=== PATIENT | female | born 1960 | race Caucasian/White ===

== ENCOUNTER 2017-02-13 07:17 | Emergency (ER) | payer OTHER ==
[~2017-02-13] VITALS: Ht 167.6 cm; Wt 100.0 kg
[2017-02-13 07:24] VITALS: BP 137/83; PULSE 81; RESP 16; TEMP 98.3; O2SAT 96
[2017-02-13 07:27] VITALS: BP 170/99; PULSE 90; RESP 16; TEMP 97.9; O2SAT 96
[2017-02-13] MEDS ORDERED: BACT800T5 PO (08:06)
--- NOTE | 2017-02-13 08:06 | PD ---
HPI Chief Complaint: Skin Problem Time Seen by Provider: 07:58 Travel History International Travel<30 days: No Contact w/Intl Traveler<30days: No Traveled to known affect area: No History of Present Illness HPI The patient is a 56-year-old female who presents emergency department for 2 infected wounds to the right upper medial thigh area for one week's duration. The patient states his symptoms started one week ago with an area of redness that she initially thought was a bug bite. However, she now notes there is some surrounding erythema in the area is painful. She also notes a satellite lesion is also tender to palpation without any drainage. The patient does have a history of similar lesions in the past with a history of MRSA. The patient denies any fever, chills, or sweats. The area is tender to palpation. She does note a history of borderline diabetes which is currently weight controlled and diet controlled. The symptoms are mild to moderate, no known alleviating or exacerbating factors. PFSH Past Medical History Medical History: Denies Significant Hx Hx Anticoagulant Therapy: No Diabetes: Yes Influenza Vaccination: No ?: Not Past Surgical History Surgical History: No Previous Surgery Social History Alcohol Use: No Tobacco Use: No Substance Use: No Allergies-Medications (Allergen,Severity, Reaction): Coded Allergies: No Known Allergies (Unverified , 02/13/17) Reported Meds & Prescriptions Reported Meds & Active Scripts Active No Active Prescriptions or Reported Medications Review of Systems General / Constitutional: No: Fever Musculoskeletal: Positive: Pain (pain over the medial aspect of the right thigh ) Skin: Positive Other (as noted in history of present illness) Endocrine: Positive: Other (borderline diabetes) Hematologic/Lymphatic: No: Other (denies any history HIV) Physical Exam Narrative GENERAL: Awake, alert, pleasant 56-year-old female who appears her stated age and is in no acute respiratory distress. SKIN: Focused skin assessment warm/dry. Patient has a small indurated areas proximal [facility] diameter with some surrounding erythema. It is tender palpation, but there is no fluctuance noted. There is another smaller lesion on the medial thigh approximate 6 cm away from the original lesion which is 1 cm in diameter, erythematous, and tender. No drainage noted. HEAD: Atraumatic. Normocephalic. EYES: Patient is wearing glasses. ENT: No nasal bleeding or discharge. Mucous membranes pink and moist. NECK: Trachea midline. No JVD. MUSCULOSKELETAL: No obvious deformities. No clubbing. No cyanosis. No edema. NEUROLOGICAL: Awake and alert. No obvious cranial nerve deficits. Motor grossly within normal limits. Normal speech. PSYCHIATRIC: Appropriate mood and affect; insight and judgment normal. Data Data Last Documented VS Vital Signs Date Time Temp Pulse Resp B/P Pulse Ox O2 Delivery O2 Flow Rate FiO2 02/13/17 07:24 98.3 81 16 137/83 96 MDM Medical Decision Making Medical Screen Exam Complete: Yes Emergency Medical Condition: Yes Medical Record Reviewed: Yes Differential Diagnosis Differential diagnosis includes abscess, MRSA, infected wound, cellulitis, furuncle, carbuncle. Narrative Course The patient's lesions appear to be superficial skin infections with mild induration but no absolute fluctuance. The patient's lites to apply warm compresses to the affected area and take Bactrim twice a day. She is advised that if the area is enlarged and become fluctuant to return for drainage. The patient agrees and understands. She is also advised to follow-up with her primary physician. Diagnosis Primary Impression: Skin lesion, infected Patient Instructions: General Instructions Additional Instructions: Apply warm compresses to the affected area. Bactrim twice a day. Return if symptoms worsen or progress. Follow-up with your primary physician. Med/Other Pt SpecificInfo: Prescription(s) given Scripts Sulfamethoxazole-Trimethoprim (Bactrim DS)800-160 Mg Tab1 Tab PO BID #20 TAB Ref 0 Prov:Louis Calderon MD 02/13/17 Disposition: 01 DISCHARGE HOME Condition: Stable Louis Calderon MD Feb 13, 2017 08:06
== END 2017-02-13 08:59 | disposition home or self-care (01) ==
LOC: PHED 07:17
DX: L08.9 Local infection of the skin and subcutaneous tissue, unspecified (principal); R73.03 Prediabetes; Z86.14 Personal history of Methicillin resistant Staphylococcus aureus infection
CPT/HCPCS: 99282

== ENCOUNTER 2017-07-14 03:24 | Emergency (ER) | payer OTHER ==
[~2017-07-14] VITALS: Ht 165.1 cm; Wt 100.0 kg
[~2017-07-14 03:24] MED LIST: BACT800T5 PO
[2017-07-14 03:30] VITALS: BP 224/110; PULSE 96; RESP 16; TEMP 97.5
[2017-07-14] MEDS ORDERED: SODIUM CHLOR 0.9% 1000 ML INJ 1,000 ML IV SCH (03:42)
[2017-07-14 03:45] VITALS: BP 215/106; PULSE 96; RESP 18; TEMP 97.5; O2SAT 95
[2017-07-14] MEDS ORDERED: ONDANSETRON HCL 4 MG/2 ML VIAL IVP ONE (03:45)
[2017-07-14] MEDS ORDERED: MORPHINE SULFATE 4 MG/ML INJ IV PUSH ONE ×2 (03:45→04:45)
[2017-07-14 03:53] VITALS: BP 224/110; PULSE 96; RESP 18; TEMP 97.5; O2SAT 97
--- NOTE | 2017-07-14 03:54 | PD ---
HPI Chief Complaint: GI Complaint Time Seen by Provider: 03:37 Travel History International Travel<30 days: No Contact w/Intl Traveler<30days: No Traveled to known affect area: No History of Present Illness HPI 57-year-old female complains of abdominal pain, back pain, nausea vomiting diarrhea. Patient states that the symptoms started yesterday evening. Patient states the pain cramping pain and sharp pain localized to lower abdomen, low back area. Patient denies any pain radiation. Patient denies any fever chills. Patient denies any dysuria or frequency. Patient denies any vaginal discharge or bleeding. Patient status post tubal ligation in the past. On a scale of 1-10 the pain is a 9. PFSH Past Medical History Hx Anticoagulant Therapy: No Diabetes: Yes Social History Alcohol Use: No Tobacco Use: No Substance Use: No Allergies-Medications (Allergen,Severity, Reaction): Coded Allergies: No Known Allergies (Unverified , 07/14/17) Reported Meds & Prescriptions Reported Meds & Active Scripts Active Bactrim DS (Sulfamethoxazole-Trimethoprim) 800-160 Mg Tab 1 Tab PO BID Review of Systems General / Constitutional: No: Fever Eyes: No: Visual changes HENT: No: Headaches Cardiovascular: No: Chest Pain or Discomfort Respiratory: No: Shortness of Breath Gastrointestinal: Positive: Nausea, Vomiting, Diarrhea, Abdominal Pain Genitourinary: No: Dysuria Musculoskeletal: No: Pain Skin: No Rash Neurologic: No: Weakness Psychiatric: No: Depression Endocrine: No: Polydipsia Hematologic/Lymphatic: No: Easy Bruising Physical Exam Narrative GENERAL: Well-nourished, well-developed patient. SKIN: Focused skin assessment warm/dry. HEAD: Normocephalic. EYES: No scleral icterus. No injection or drainage. NECK: Supple, trachea midline. No JVD or lymphadenopathy. CARDIOVASCULAR: Regular rate and rhythm without murmurs, gallops, or rubs. RESPIRATORY: Breath sounds equal bilaterally. No accessory muscle use. GASTROINTESTINAL: Abdomen soft, nondistended. Moderate tenderness on palpation lower abdomen. No rebound tenderness. No mass. MUSCULOSKELETAL: No cyanosis, or edema. BACK: Patient has moderate tenderness on palpation lower lumbar area, without obvious deformity. No CVA tenderness. Negative straight leg raising. Neurologic exam normal. Data Data Last Documented VS Vital Signs Date Time Temp Pulse Resp B/P (MAP) Pulse Ox O2 Delivery O2 Flow Rate FiO2 07/14/17 04:52 16 07/14/17 04:12 90 190/100 (130) 95 Room Air 07/14/17 03:53 97.5 Orders Orders Complete Blood Count With Diff (07/14/17 03:42) Comprehensive Metabolic Panel (07/14/17 03:42) Lipase (07/14/17 03:42) Prothrombin Time / Inr (Pt) (07/14/17 03:42) Act Partial Throm Time (Ptt) (07/14/17 03:42) Urinalysis - C+S If Indicated (07/14/17 03:42) Ct Abd/Pel W Iv Contrast(Rout) (07/14/17 03:42) Iv Access Insert/Monitor (07/14/17 03:42) Ecg Monitoring (07/14/17 03:42) Oximetry (07/14/17 03:42) Ondansetron Inj (Zofran Inj) (07/14/17 03:45) Sodium Chlor 0.9% 1000 Ml Inj (Ns 1000 M (07/14/17 03:42) Morphine Inj (Morphine Inj) (07/14/17 03:45) Iohexol 350 Inj (Omnipaque 350 Inj) (07/14/17 04:35) Morphine Inj (Morphine Inj) (07/14/17 04:45) Ketorolac Inj (Toradol Inj) (07/14/17 05:45) Labs Laboratory Tests Test 07/14/17 03:45 White Blood Count 12.7 TH/MM3 Red Blood Count 4.78 MIL/MM3 Hemoglobin 12.5 GM/DL Hematocrit 38.1 % Mean Corpuscular Volume 79.7 FL Mean Corpuscular Hemoglobin 26.1 PG Mean Corpuscular Hemoglobin Concent 32.7 % Red Cell Distribution Width 13.3 % Platelet Count 230 TH/MM3 Mean Platelet Volume 9.2 FL Neutrophils (%) (Auto) 84.9 % Lymphocytes (%) (Auto) 11.9 % Monocytes (%) (Auto) 2.7 % Eosinophils (%) (Auto) 0.2 % Basophils (%) (Auto) 0.3 % Neutrophils # (Auto) 10.9 TH/MM3 Lymphocytes # (Auto) 1.5 TH/MM3 Monocytes # (Auto) 0.3 TH/MM3 Eosinophils # (Auto) 0.0 TH/MM3 Basophils # (Auto) 0.0 TH/MM3 CBC Comment DIFF FINAL Differential Comment Prothrombin Time 10.4 SEC Prothromb Time International Ratio 0.9 RATIO Activated Partial Thromboplast Time 25.3 SEC Urine Color STRAW Urine Turbidity CLEAR Urine pH 7.0 Urine Specific [place] 1.012 Urine Protein TRACE mg/dL Urine Glucose (UA) 250 mg/dL Urine Ketones TRACE mg/dL Urine Occult Blood SMALL Urine Nitrite NEG Urine Bilirubin NEG Urine Leukocyte Esterase NEG Urine RBC 10-14 /hpf Urine WBC 0-2 /hpf Urine Squamous Epithelial Cells 0-5 /hpf Urine Bacteria NONE /hpf Microscopic Urinalysis Comment CULT NOT INDICATED Blood Urea Nitrogen 13 MG/DL Creatinine 0.89 MG/DL Random Glucose 195 MG/DL Total Protein 8.2 GM/DL Albumin 3.7 GM/DL Calcium Level 8.9 MG/DL Alkaline Phosphatase 78 U/L Aspartate Amino Transf (AST/SGOT) 16 U/L Alanine Aminotransferase (ALT/SGPT) 22 U/L Total Bilirubin 0.4 MG/DL Sodium Level 138 MEQ/L Potassium Level 3.8 MEQ/L Chloride Level 103 MEQ/L Carbon Dioxide Level 24.6 MEQ/L Anion Gap 10 MEQ/L Estimat Glomerular Filtration Rate 65 ML/MIN Lipase 157 U/L [facility] Medical Decision Making Medical Screen Exam Complete: Yes Emergency Medical Condition: Yes Interpretation(s) 4:31 AM. CBC WBC 12.7. Hemoglobin 12.5. MCV 79.7. 84 neutrophil. CMP within normal limit. UA positive RBC. 5:38 AM. Last Impressions Abdomen/Pelvis CT 07/14/17 0342 Signed Impressions: Service Date/Time: Wednesday, July 12, 2017 15:33 - CONCLUSION: 1. 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 2. Diffuse hepatic fatty infiltration. 3. Prominence of the endometrial stripe of the uterus. Again, this could be due to either hormonal stimulation or phase of menses if the patient is still menstruating. Yakov Hernandez MD Differential Diagnosis Differential diagnoses including colitis, UTI, pyelonephritis, nephrolithiasis, ovarian cyst, ovarian torsion, appendicitis. Narrative Course 57-year-old female with low abdominal pain, low back pain, nausea vomiting diarrhea. Normal saline solution 1 25 cc an hour. Morphine 2 mg IV. Zofran 4 mg IV. Diagnosis Primary Impression: Nephrolithiasis Patient Instructions: General Instructions Additional Instructions: Take medication as directed. Encouraged by mouth fluid. Follow-up with urologist. Return if intractable pain, persistent vomiting, fever. Med/Other Pt SpecificInfo: Prescription(s) given Scripts Ondansetron Odt (Zofran Odt) 4 Mg Tab 4 MG SL Q6HR Y for Nausea/Vomiting, #12 TAB 0 Refills Prov: Dewayne Hermosillo MD 07/14/17 Tamsulosin (Flomax) 0.4 Mg Cap 0.4 MG PO HS for Manage Prostate Problems, #14 CAP 0 Refills Prov: Dewayne Hermosillo MD 07/14/17 Hydrocodone-Acetaminophen ([place]) 5-325 mg Tab 1 TAB PO Q6H Y for PAIN, #30 TAB 0 Refills Prov: Dewayne Hermosillo MD 07/14/17 Disposition: 01 DISCHARGE HOME Condition: Stable Dewayne Hermosillo MD Jul 14, 2017 03:54
[2017-07-14 03:58] LABS: BLOOD, URINE SMALL (NEG); GLUCOSE,URINE 250 mg/dL (NEG); KETONE, URINE TRACE mg/dL (NEG); NITRITE,URINE NEG (NEG)
[2017-07-14 03:59] LABS: AUTOMATED NEUTROPHIL # 10.9 TH/MM3 (1.8-7.7); BASOPHIL % 0.3 % (0.0-2.0); EOSINOPHIL % 0.2 % (0.0-4.0); HEMATOCRIT 38.1 % (35.0-46.0); HEMO FLAGS DIFF FINAL; LYMPH % 11.9 % (9.0-44.0); LYMPHOCYTE # 1.5 TH/MM3 (1.0-4.8); MEAN CELL VOLUME 79.7 FL (80.0-100.0); MEAN CORPUSCULAR HEMOGLOBIN 26.1 PG (27.0-34.0); MEAN CORPUSCULAR HGB CONC 32.7 % (32.0-36.0); MONO % 2.7 % (0.0-8.0); NEUT % 84.9 % (16.0-70.0); PLATELET COUNT 230 TH/MM3 (150-450); RED BLOOD COUNT 4.78 MIL/MM3 (4.00-5.30); RED CELL DISTRIBUTION WIDTH 13.3 % (11.6-17.2); WHITE BLOOD COUNT 12.7 TH/MM3 (4.0-11.0)
[2017-07-14 04:04] LABS: URINE COLOR STRAW (YELLW/STRAW)
[2017-07-14 04:05] LABS: COMMENT (UR) CULT NOT INDICATED; CULTURE IF INDICATED CULT NOT INDICATED; SQUAMOUS EPITHELIAL CELL URINE 0-5 /hpf (0-5); WBC, URINE 0-2 /hpf (0-5)
[2017-07-14 04:06] LABS: CHLORIDE 103 MEQ/L (98-107); POTASSIUM 3.8 MEQ/L (3.5-5.1); SODIUM (NA) 138 MEQ/L (136-145)
[2017-07-14 04:10] LABS: ANION GAP 10 MEQ/L (5-15); BICARBONATE 24.6 MEQ/L (21.0-32.0); BLOOD UREA NITROGEN 13 MG/DL (7-18)
[2017-07-14 04:12] VITALS: BP 190/100; PULSE 90; RESP 18; O2SAT 95
[2017-07-14 04:13] LABS: ALT (GPT) 22 U/L (10-53); APTT (PATIENT) 25.3 SEC (24.3-30.1); AST (GOT) 16 U/L (15-37); GLOMERULAR FILTRATION RATE 65 ML/MIN (>89); INTERNATIONAL NORMALIZED RATIO 0.9 RATIO; PROTHROMBIN TIME - PATIENT 10.4 SEC (9.8-11.6)
[2017-07-14 04:14] LABS: TOTAL BILIRUBIN ADULT 0.4 MG/DL (0.2-1.0)
[2017-07-14 04:15] LABS: ALKALINE PHOSPHATASE 78 U/L (45-117)
[2017-07-14] MEDS ORDERED: IOHEXOL 350 MG/ML 10 ML VIAL (for RAD DIAG) IVCONTRAST ONE (04:35)
[2017-07-14 04:52] VITALS: RESP 16
--- NOTE | 2017-07-14 05:31 | RADRPT ---
EXAM DATE/TIME: 07/14/2017 04:33 CORRECTION Corrected on: July 14, 2017; [facility] COMPARISON: No previous studies available for comparison. INDICATIONS : Nausea and vomiting with back pain. IV CONTRAST: 100 cc Omnipaque 350 (iohexol) IV ORAL CONTRAST: No oral contrast ingested. RADIATION DOSE: 21.76 CTDIvol (mGy) MEDICAL HISTORY : Diabetes mellitus type 2. SURGICAL HISTORY : Tubal ligation. section. ENCOUNTER: Initial ACUITY: 1 day PAIN SCALE: 8/10 LOCATION: [facility] TECHNIQUE: Volumetric scanning of the abdomen and pelvis was performed. Using automated exposure control and ad justment of the mA and/or kV according to patient size, radiation dose was kept as low as reasonably achievable to obtain optimal diagnostic quality images. DICOM format image data is available electro nically for review and comparison. FINDINGS: LOWER LUNGS: The visualized lower lungs are clear. LIVER: Homogeneous, but decreased density without lesion. There is no dilation of the biliary tree. No brook cified gallstones. SPLEEN: Normal size without lesion. PANCREAS: Within normal limits. KIDNEYS: Horseshoe kidney. There is hydronephrosis and perinephric stranding around the left-sided moiety with hydroureter, all due to a 4 mm ureteric stone located approximately 2-1/2 cm above the acetabular ro of. ADRENAL GLANDS: Within normal limits. VASCULAR: There is no aortic aneurysm. BOWEL/MESENTERY: The stomach, small bowel, and colon demonstrate no acute abnormality. There is no free intraperitone al air or fluid. ABDOMINAL WALL: Within normal limits. RETROPERITONEUM: There is no lymphadenopathy. BLADDER: No wall thickening or mass. REPRODUCTIVE: Prominent endometrial stripe. This may be due to the phase of menses if the patient is still menstrua ting. May be due to hormonal stimulation as well. INGUINAL: There is no lymphadenopathy or hernia. MUSCULOSKELETAL: Within normal limits for patient age. CONCLUSION: 1. 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 2. Diffuse hepatic fatty infiltration. 3. Prominence of the endometrial stripe of the uterus. Again, this could be due to either hormonal st imulation or phase of menses if the patient is still menstruating. Yakov Hernandez MD on July 14, 2017 at 5:24 Board Certified Radiologist. This report was verified electronically.
[2017-07-14] MEDS ORDERED: ZOFR4TAB3 SL (05:40)
[2017-07-14] MEDS ORDERED: TAMS5CAP PO (05:40)
[2017-07-14] MEDS ORDERED: NORC5TAB PO (05:40)
[2017-07-14] MEDS ORDERED: KETOROLAC TROMETHAMINE 30 MG/ML (IVP) VIAL IV PUSH ONE (05:45)
[2017-07-14 06:07] VITALS: BP 187/96
== END 2017-07-14 06:25 | disposition home or self-care (01) ==
LOC: PHED 03:24
DX: N13.2 Hydronephrosis with renal and ureteral calculous obstruction (principal)
CPT/HCPCS: 74177; 80053; 81001; 83690; 85025; 85610; 85730; 96361; 96374; 96375; 96376; 99285; J1885; J2270; J2405; J7030; Q9967